=== PATIENT | female | born 1980 | race Caucasian/White ===

== ENCOUNTER 2025-04-29 21:26 | Emergency (ER) | payer OTHER, SELFPAY ==
[2025-04-29 21:35] VITALS: BP 120/84
[2025-04-29 22:01] LABS: Hematocrit 41.6 % (37.0-47.0); Hemoglobin 14.3 g/dL (12.0-16.0); Mean Corp Hgb Conc. 34.4 g/dL (33.0-37.0); Mean Corpuscular Volume 90.2 fL (81.0-99.0); Nucleated Red Blood Cells % 0 %; Platelet Count 310 10^3/uL (130-400); Red Cell Dist. Width 14.7 % (11.5-14.5)
[2025-04-29 22:16] LABS: ALT (SGPT) 29 U/L (0-35); AST (SGOT) 41 U/L (14-36); Albumin 5.1 g/dl (3.5-5.0); Alkaline Phosphatase 88 U/L (38-126); Blood Urea Nitrogen 7 mg/dl (7-17); Calcium 8.8 mg/dl (8.4-10.2); Carbon Dioxide 21 mmol/L (22-30); Chloride 111 mmol/L (98-107); Glucose 87 mg/dl (70-99); Potassium 3.9 mmol/L (3.5-5.1); Sodium 146 mmol/L (135-145); Total Protein 8.9 g/dl (6.3-8.2); eGFR > 60.00
[2025-04-29 22:17] LABS: Lipase 253 U/L (23-300)
[2025-04-29 22:28] LABS: Beta HCG Quantitative < 2.39 mIU/ml
[2025-04-29 23:00] VITALS: BMI 26.5
[2025-04-29 23:01] VITALS: BP 114/91
[2025-04-30] VITALS: BP 107/82
--- NOTE | 2025-04-30 00:37 | ED.GENMED ---
History of Present Illness
General
Chief Complaint: Alcohol Problem
Time Seen by Provider: 04/30/25 00:13
History of Present Illness
History of Present Illness:
44-year-old female with history of EtOH abuse presenting to the emergency department seeking help regarding alcohol withdrawal. Patient reports that she last drank prior to arrival. Notes history of withdrawal seizures, supposed to take Keppra,
however does not do so because she does not like the way that it makes her feel. Denies any recent seizures. She denies chest pain or difficulty breathing. Denies abdominal pain. Denies SI or HI. Notes she has been in inpatient rehab in the
past, however is not currently interested in rehab facilities. Denies additional acute medical complaints
Phy Exam
Physical Exam
Physical Exam:
General: Well-appearing, no clinical signs of dehydration, nontoxic and in no acute distress
HEENT: protecting airway
Neck: appears supple
CV: Tachycardic, regular rhythm
Resp: No accessory muscle use, no increased work of breathing
Abd: No distention
Extremities: No deformities, no swelling
Neuro: alert, no focal neurologic deficit
: deferred
Rectal: deferred
Psych: Normal affect
Skin: Intact
Scores
Withdrawal Assessment of Alcohol
Withdrawal Assessment Completed?: Yes
Nausea and Vomiting: No nausea and no vomiting
Tactile Disturbances: None
Tremor: No tremor
Auditory Disturbances: Not present
Paroxysmal Sweats: No sweat visible
Visual Disturbances: Not present
Anxiety: Mild anxiety
Headache, Fullness in Head: Not present
Agitation: Moderately fidgety and restless
Orientation and clouding of sensorium: Oriented and can do serial additions
Total CIWA Score: 5
Alcohol Withdrawal Medication Recommendation: Equal to MSAS Score 0-4. Monitor & re-assess q2hrs, NO MEDICATION NEEDED
Course
Orders/Labs/Results
Orders:
Orders
04/29/25 21:51
Alcohol Urgent
Complete Blood Count/With Diff Urgent
Comprehensive Metabolic Panel Urgent
HCG, Beta Quantitative [Beta HCG Quantitative] Urgent
Is this a screen?: No
Lipase Urgent
04/29/25 22:16
Add On- LAB Urgent
Tests Added?: alcohol level
Abnormal Lab Results
04/29/25
21:51
RDW 14.7 H %
(11.5-14.5)
Sodium 146 H mmol/L
(135-145)
Chloride 111 H mmol/L
(98-107)
Carbon Dioxide 21 L mmol/L
(22-30)
AST 41 H U/L
(14-36)
Total Protein 8.9 H g/dl
(6.3-8.2)
Albumin 5.1 H g/dl
(3.5-5.0)
04/29/25 21:51
04/29/25 21:51
Vital Signs
Initial and Last Documented VS:
Initial Vital Signs
Temp Pulse Resp BP Pulse Ox
97.4 F 102 16 120/84 98
04/29/25 21:35 04/29/25 21:35 04/29/25 21:35 04/29/25 21:35 04/29/25 21:35
Last Documented Vital Signs
Temp Pulse Resp BP Pulse Ox
98.1 F 100 18 114/91 97
04/29/25 23:08 04/29/25 23:01 04/29/25 23:08 04/29/25 23:01 04/30/25 00:37
MDM/Problems Addressed
MDM/Problems Addressed:
44-year-old female with history of alcohol abuse presenting for concern of withdrawal. Vital signs on arrival significant for mild tachycardia.
On exam, patient resting comfortably, no acute distress. Patient appears to be in mild alcohol withdrawal given presenting tachycardia. Otherwise no hallucinations, no tactile disturbances, no hypertension, no tremulousness, no vomiting. Patient
denies any recent seizures. Without present concern for withdrawal seizure. Discussed in detail, recommending that she speak to [facility] for resources, including inpatient rehabilitation. Patient is not interested. She is requesting to stay in the
hospital for withdrawal. However, patient without any present concerning features for withdrawal, not meeting inpatient criteria. Patient at this time is requesting to go home. Again explained that patient should reconsider inpatient
rehabilitation and detox. She is adamantly refusing. Patient at this time is hemodynamically stable for discharge home. Explained that if she changes her mind, to immediately return to the hospital for inpatient placement
*Pulse Oximetry
SaO2: 97
Oxygen Mode of Delivery: Room air
Patient hypoxic: no
*Critical Care Note
Total Time (30-74mins, 75-104mins- exclusive of procedures): Not Applicable
ED Attending Note
-
Portions of this chart may have been created with voice recognition software.� Occasional wrong word or��sound alike� substitutions may have occurred due to the inherent limitations of voice recognition software.
Discharge Plan
Departure
Patient with high blood pressure during this ER visit?: No
Condition: Good
Discharge Problem:
Alcohol withdrawal
Instructions: Alcohol Use Disorder (DC), Alcohol Withdrawal (DC)
Referrals:
UNKNOWN - PT DOES,NOT KNOW [Family Provider]
Interventions
Interventions:
*Risk Screen - Suicide Last Done: 04/29/25 21:35
*General Assessment Last Done: 04/29/25 23:03
*Neglect/Abuse Screening Last Done: 04/29/25 21:35
*ED- Fall Risk Assessment Last Done: 04/29/25 23:03
*ED COVID-19 Vaccine History Last Done: 04/29/25 23:03
ED- Neurological Assessment Last Done: 04/29/25 23:03
ED-Psychological Assessment Last Done: 04/29/25 23:03
Discharge Date and Time
Print Language: LITHUANIAN
[2025-04-30 01:00] VITALS: BP 112/82
== END 2025-04-30 01:32 | disposition home or self-care (01) ==
LOC: EMR 21:26
PROVIDERS: Emergency Medicine; EMERGENCY PHYSICIAN Student in an Organized Health Care Education/Training Program
DX: F10.939 Alcohol use, unspecified with withdrawal, unspecified (principal); Y90.9 Presence of alcohol in blood, level not specified; R00.0 Tachycardia, unspecified
CPT/HCPCS: 99283; 80053; 82077; 83690; 84702; 85025